=== PATIENT | female | born 1950 | race Caucasian/White ===

== ENCOUNTER 2021-01-06 10:30 | Outpatient (CLI) | payer OTHER | END 2021-01-06 10:31 | disposition home or self-care (01) | LOC: MRI 10:30 | PROVIDERS: ATTEND Family Medicine | DX: Z86.011 Personal history of benign neoplasm of the brain (principal); G93.9 Disorder of brain, unspecified; G08 Intracranial and intraspinal phlebitis and thrombophlebitis | CPT/HCPCS: 70544; 70553; 82565 ==